=== PATIENT | female | born 1960 | race Caucasian/White ===

== ENCOUNTER 2017-08-15 09:28 | Emergency (ER) | payer OTHER ==
[2017-08-15] MEDS: SOD CHLORIDE 0.9% 1,000 ML IV ×2 (11:32→14:52)
[2017-08-15 11:47] LABS: ADD MAN DIFF? NO
[2017-08-15] MEDS: IPRATROPIUM (NEB) 0.5 MG/2.5 ML AMP HHN (11:47)
[2017-08-15] MEDS: ALBUTEROL 0.083% (NEB) 2.5 MG/3 ML AMP HHN (11:47)
[2017-08-15 11:53] LABS: WHITE BLOOD COUNT 8.5 10^3/ul (4.8-10.8)
[2017-08-15 11:53] LABS: BASOPHIL # 0.1 10^3/ul (0.0-0.1); BASOPHILS % 0.6 % (0.0-2.0); EOSINOPHILS # 0.2 10^3/ul (0.0-0.5); EOSINOPHILS % 2.6 % (0.0-7.0); HEMATOCRIT 42.9 % (37.0-47.0); HEMOGLOBIN 14.6 g/dl (12.0-16.0); LYMPHOCYTES # 2.3 10^3/ul (0.8-2.9); LYMPHOCYTES % 26.9 % (15.0-51.0); MEAN CORPUSCULAR HEMOGLOBIN 30.6 pg (29.0-33.0); MEAN CORPUSCULAR VOLUME 89.9 fl (82.0-101.0); MEAN PLATELET VOLUME 12.3 fl (7.4-10.4); MONOCYTE # 0.6 10^3/ul (0.3-0.9); MONOCYTES % 7.3 % (0.0-11.0); NEUTROPHIL # 5.3 10^3/ul (1.6-7.5); NEUTROPHILS % 62.2 % (39.0-77.0); PLATELET COUNT 321 10^3/UL (140-415); RED BLOOD COUNT 4.77 10^6/ul (4.20-5.40); RED CELL DISTRIBUTION WIDTH 14.2 % (11.5-14.5)
[2017-08-15 12:08] LABS: ADD UMIC NO; UR ASCORBIC ACID NEGATIVE (NEGATIVE); UR BILIRUBIN (Dip) NEGATIVE (NEGATIVE); UR BLOOD (Dip) NEGATIVE (NEGATIVE); UR CLARITY CLEAR (CLEAR); UR COLOR YELLOW (YELLOW); UR GLUCOSE (Dip) 3+ mg/dL (NEGATIVE); UR KETONES (Dip) 1+ mg/dL (NEGATIVE); UR LEUKOCYTE ESTERASE (Dip) NEGATIVE Leu/ul (NEGATIVE); UR NITRITE (Dip) NEGATIVE (NEGATIVE); UR SPECIFIC GRAVITY (Dip) 1.037 (1.003-1.030); UR TOTAL PROTEIN (Dip) NEGATIVE (NEGATIVE); UR UROBILINOGEN (Dip) NEGATIVE (NEGATIVE)
[2017-08-15 13:18] LABS: ALANINE AMINOTRANSFERASE 124 IU/L (13-69); ALBUMIN 4.1 g/dl (3.3-4.9); ALKALINE PHOSPHATASE 120 IU/L (42-121); ANION GAP 17 (8-16); ASPARTATE AMINO TRANSFERASE 96 IU/L (15-46); BILIRUBIN,INDIRECT 0.1 mg/dl (0-1.1); BILIRUBIN,TOTAL 0.1 mg/dl (0.2-1.3); BLOOD UREA NITROGEN 10 mg/dl (7-20); CARBON DIOXIDE 24 mmol/L (21-31); CHLORIDE 100 mmol/L (97-110); CREATININE 0.55 mg/dl (0.44-1.00); LIPASE 89 U/L (23-300); POTASSIUM 3.4 mmol/L (3.5-5.1); SODIUM 138 mmol/L (135-144); TOTAL PROTEIN 7.5 g/dl (6.1-8.1)
[2017-08-15 13:21] LABS: GLUCOSE 445 mg/dl (70-220)
[2017-08-15] MEDS: INSULIN LISPRO 100 UNIT/ML VIAL SC ×2 (14:46→16:40)
[2017-08-15] MEDS ORDERED: GLUCOSE GEL 15 GRAM TUBE BUCCAL (15:00)
[2017-08-15] MEDS ORDERED: GLUCAGON 1 MG INJ IM (15:00)
[2017-08-15] MEDS ORDERED: DEXTROSE 50% 50 ML SYRINGE IV ×2 (15:00)
[2017-08-15] MEDS ORDERED: GLUCOSE GEL 15 GRAM TUBE PO ×2 (15:00)
== END 2017-08-15 17:26 | disposition home or self-care (01) ==
LOC: FTE 09:28
DX: E11.65 Type 2 diabetes mellitus with hyperglycemia (principal); I10 Essential (primary) hypertension; J45.909 Unspecified asthma, uncomplicated; Z79.4 Long term (current) use of insulin; Z79.82 Long term (current) use of aspirin; Z79.84 Long term (current) use of oral hypoglycemic drugs
CPT/HCPCS: 36415; 71010; 80053; 81003; 82962; 83690; 85025; 87400; 94664; 96372; 99284-25

== ENCOUNTER 2018-10-03 14:24 | Emergency (ER) | payer OTHER ==
[2018-10-03] MEDS: KETOROLAC 30 MG INJ IM (17:36)
== END 2018-10-03 18:53 | disposition home or self-care (01) ==
LOC: FTE 14:24
DX: J10.1 Influenza due to other identified influenza virus with other respiratory manifestations (principal); I10 Essential (primary) hypertension; E11.9 Type 2 diabetes mellitus without complications; J45.909 Unspecified asthma, uncomplicated; Z79.4 Long term (current) use of insulin; Z79.82 Long term (current) use of aspirin
CPT/HCPCS: 71046; 87400; 96372; 99284-25

== ENCOUNTER 2018-10-22 00:24 | Emergency (ER) | payer OTHER ==
[2018-10-22] MEDS: DEXAMETHASONE 10 MG/ML 1 ML INJ IM (04:06)
[2018-10-22] MEDS: IPRATROPIUM (NEB) 0.5 MG/2.5 ML AMP HHN (04:14)
[2018-10-22] MEDS: ALBUTEROL 0.083% (NEB) 2.5 MG/3 ML AMP HHN (04:14)
[2018-10-22] MEDS: CEFTRIAXONE 1 GM INJ IM (05:53)
[2018-10-22] MEDS: LIDOCAINE 1% (MDV) 20 ML INJ SC (05:53)
[2018-10-22] MEDS: GUAIFENESIN/DM 5ML CUP PO (05:57)
== END 2018-10-22 05:58 | disposition home or self-care (01) ==
LOC: FTE 00:24
DX: J40 Bronchitis, not specified as acute or chronic (principal); I10 Essential (primary) hypertension; E11.9 Type 2 diabetes mellitus without complications; H10.021 Other mucopurulent conjunctivitis, right eye; Z79.4 Long term (current) use of insulin; Z79.82 Long term (current) use of aspirin
CPT/HCPCS: 71046; 94664; 96372; 99284-25

== ENCOUNTER 2019-01-13 02:30 | Observation (INO) | payer OTHER ==
[2019-01-13 04:06] LABS: URINE BLOOD (Dip) POC Negative (NEGATIVE); URINE KETONES (Dip) POC 1+ (NEGATIVE); URINE LEUKOCYTE EST (Dip) POC Negative (NEGATIVE); URINE NITRITE (Dip) POC Negative (NEGATIVE); URINE TOTAL PROTEIN POC 2+ (NEGATIVE)
[2019-01-13 04:06] LABS: URINE PH (Dip) POC 5.5 (5.0-8.5)
[2019-01-13 04:08] LABS: ADD MAN DIFF? NO
[2019-01-13] MEDS: ONDANSETRON 4 MG INJ IV (04:08)
[2019-01-13] MEDS: MECLIZINE 12.5 MG TAB PO (04:08)
[2019-01-13 04:13] LABS: WHITE BLOOD COUNT 16.2 10^3/ul (4.8-10.8)
[2019-01-13 04:13] LABS: BASOPHIL # 0.1 10^3/ul (0.0-0.1); BASOPHILS % 0.6 % (0.0-2.0); EOSINOPHILS # 0.1 10^3/ul (0.0-0.5); EOSINOPHILS % 0.3 % (0.0-7.0); HEMATOCRIT 39.9 % (37.0-47.0); HEMOGLOBIN 13.1 g/dl (12.0-16.0); LYMPHOCYTES % 18.2 % (15.0-51.0); MEAN CORPUSCULAR HEMOGLOBIN 28.9 pg (29.0-33.0); MEAN CORPUSCULAR HGB CONC 32.8 g/dl (32.0-37.0); MEAN CORPUSCULAR VOLUME 88.1 fl (82.0-101.0); MEAN PLATELET VOLUME 11.7 fl (7.4-10.4); MONOCYTE # 0.6 10^3/ul (0.3-0.9); MONOCYTES % 3.7 % (0.0-11.0); NEUTROPHIL # 12.3 10^3/ul (1.6-7.5); PLATELET COUNT 363 10^3/UL (140-415); RED BLOOD COUNT 4.53 10^6/ul (4.20-5.40); RED CELL DISTRIBUTION WIDTH 14.5 % (11.5-14.5)
[2019-01-13 04:26] LABS: AMPHETAMINE/METHAMPHETAMINE Negative (NEGATIVE); BARBITURATES Negative (NEGATIVE); BENZODIAZEPINES Negative (NEGATIVE); CANNABINOIDS Negative (NEGATIVE); COCAINE Negative (NEGATIVE); OPIATES Negative (NEGATIVE)
[2019-01-13 04:39] LABS: ANION GAP 14 (5-13); BLOOD UREA NITROGEN 23 mg/dl (7-20); CALCIUM 10.1 mg/dl (8.4-10.2); CARBON DIOXIDE 24 mmol/L (21-31); CHLORIDE 102 mmol/L (97-110); CREATININE 0.65 mg/dl (0.44-1.00); ETHANOL < 10.0 mg/dl (0-0); Estimated GFR > 60 mL/min (>60); GLUCOSE 336 mg/dl (70-220); POTASSIUM 3.7 mmol/L (3.5-5.1); SODIUM 140 mmol/L (135-144)
[2019-01-13] MEDS: SOD CHLORIDE 0.9% 500 ML IV (05:25)
[2019-01-13] MEDS ORDERED: BISACODYL (EC) 5 MG TAB PO (06:00)
[2019-01-13] MEDS ORDERED: NACL 0.9% 3 ML SYG IV (06:00)
[2019-01-13] MEDS ORDERED: DOCUSATE SODIUM 100 MG CAP PO (06:00)
[2019-01-13 06:41] LABS: HEMOGLOBIN A1C 11.1 % (0-5.9)
[2019-01-13 06:46] LABS: CHOL/HDL RATIO 6.5 RATIO; HDL CHOLESTEROL 37 mg/dl (37-92); LDL CHOLESTEROL,CALCULATED 163 mg/dl; TRIGLYCERIDES 205 mg/dl (0-149)
[2019-01-13 06:46] LABS: CHOLESTEROL 241 mg/dl (100-200)
[2019-01-13] MEDS ORDERED: DEXTROSE 50% 50 ML SYRINGE IV ×2 (10:00)
[2019-01-13] MEDS ORDERED: GLUCAGON 1 MG INJ IM (10:00)
[2019-01-13] MEDS ORDERED: GLUCOSE GEL 15 GRAM TUBE BUCCAL (10:00)
[2019-01-13] MEDS ORDERED: GLUCOSE GEL 15 GRAM TUBE PO ×2 (10:00)
[2019-01-13] MEDS: HYDROCHLOROTHIAZIDE 12.5 MG CAP PO (10:34)
[2019-01-13] MEDS: BENAZEPRIL 20 MG TAB PO (10:34)
[2019-01-13 11:11] LABS: B-TYPE NATRIURETIC PEPTIDE 25 PG/ML (0-125)
[2019-01-13] MEDS: INSULIN GLARGINE [LANTus] (100 UNITS/ML) SYG SC (12:31)
[2019-01-13] MEDS: ENOXAPARIN 40 MG/0.4 ML SYG SC (12:31)
[2019-01-13] MEDS: INSULIN ASPART [NOVOLOG] 3 ML PEN SC ×5 (12:31→21:46)
[2019-01-13] MEDS: ASPIRIN 81 MG TAB PO (12:34)
[2019-01-13] MEDS: ACETAMINOPHEN 325 MG TAB PO ×2 (15:57→21:26)
[2019-01-13] MEDS: ATORVASTATIN 80 MG TAB PO (20:46)
[2019-01-14] MEDS: ACCU-CHEK XX (02:00)
[2019-01-14 06:32] LABS: WHITE BLOOD COUNT 11.5 10^3/ul (4.8-10.8)
[2019-01-14 06:32] LABS: ABNORMAL IP MESSAGE 1; HEMATOCRIT 41.4 % (37.0-47.0); HEMOGLOBIN 13.2 g/dl (12.0-16.0); MEAN CORPUSCULAR HEMOGLOBIN 28.4 pg (29.0-33.0); MEAN CORPUSCULAR HGB CONC 31.9 g/dl (32.0-37.0); MEAN PLATELET VOLUME 11.7 fl (7.4-10.4); PLATELET COUNT 350 10^3/UL (140-415); RED BLOOD COUNT 4.65 10^6/ul (4.20-5.40); RED CELL DISTRIBUTION WIDTH 14.6 % (11.5-14.5)
[2019-01-14 06:59] LABS: POSITIVE DIFF @See below
[2019-01-14 07:00] LABS: ADD MAN DIFF? YES
[2019-01-14] MEDS: INSULIN ASPART [NOVOLOG] 3 ML PEN SC ×4 (08:45→11:51)
[2019-01-14] MEDS: INSULIN GLARGINE [LANTus] (100 UNITS/ML) SYG SC (08:45)
[2019-01-14] MEDS: HYDROCODONE/APAP (5/325) TAB PO (08:54)
[2019-01-14] MEDS: ASPIRIN 81 MG TAB PO (08:55)
[2019-01-14] MEDS: HYDROCHLOROTHIAZIDE 12.5 MG CAP PO (08:55)
[2019-01-14] MEDS: BENAZEPRIL 20 MG TAB PO (08:55)
[2019-01-14] MEDS: ENOXAPARIN 40 MG/0.4 ML SYG SC (09:02)
[2019-01-14 09:35] LABS: ANISOCYTOSIS 1+ (0-0); BASOPHIL #M 0.2 10^3/ul (0.0-0.0); BASOPHILS % (M) 2 % (0-2); EOSINOPHILS % (M) 1 % (0-7); LYMPHOCYTES #M 5.2 10^3/ul (0.8-2.9); LYMPHOCYTES % (M) 46 % (15-51); MONOCYTE #M 0.5 10^3/ul (0.3-0.9); MONOCYTES % (M) 5 % (0-11); PLATELET ESTIMATE NORMAL; POLYCHROMASIA 1+ (0-0); REACTIVE LYMPHOCYTES #M 0.2 10^3/ul (0.0-0.0); REACTIVE LYMPHOCYTES% (M) 2 % (0-0); SEGMENTED NEUTROPHILS (M) % 44 % (39-77); SMUDGE%M 7 % (0-0)
== END 2019-01-14 13:00 | disposition home or self-care (01) ==
LOC: E/R 02:30 → TEL 05:23
DX: H83.09 Labyrinthitis, unspecified ear (principal); J45.40 Moderate persistent asthma, uncomplicated; E78.5 Hyperlipidemia, unspecified; I10 Essential (primary) hypertension; E11.40 Type 2 diabetes mellitus with diabetic neuropathy, unspecified; R80.9 Proteinuria, unspecified; E66.9 Obesity, unspecified; Z68.38 Body mass index [BMI] 38.0-38.9, adult; L72.12 Trichodermal cyst; E78.00 Pure hypercholesterolemia, unspecified; Z79.82 Long term (current) use of aspirin; Z79.84 Long term (current) use of oral hypoglycemic drugs
CPT/HCPCS: 36415; 70450; 70551; 71045; 80048; 80061; 80307; 81003; 82962; 83036; 83880; 84443; 85025; 93005; 93306; 93880; 96374; 99285-25; G0378